=== PATIENT | male | born 1980 | race African-American/Black ===

== ENCOUNTER 2021-09-15 13:14 | Emergency (ER) | payer BC, SELFPAY ==
[2021-09-15] VITALS (10 sets, daily range): BP systolic 130–141; BP diastolic 73–88; PULSE 65–89; RESP 9–16; TEMP 36.8; O2SAT 100
--- NOTE | ~2021-09-15 | XR_ITS ---
EXAMINATION: XR chest 2V 09/15/2021 13:36 INDICATION: Shortness of breath PROCEDURE: 2 view chest COMPARISON: No prior studies for comparison. FINDINGS: The lungs are clear. The cardiomediastinal silhouette is within normal limits. There are no pleural effusions. There is no pneumothorax suspected. IMPRESSION: 1: NO ACUTE CARDIOPULMONARY DISEASE. Reviewed, dictated and finalized at location A.
--- NOTE | 2021-09-15 13:16 | ECG_ITS ---
Measurements Intervals [place] Rate: 67 P: 74 WI: 146 QRS: 63 QRSD: 108 T: 72 QT: 383 QTc: 405 Interpretive Statements SINUS RHYTHM POSSIBLE LEFT ATRIAL ENLARGEMENT [-0.1mV P WAVE IN V1/V2] INCOMPLETE RIGHT BUNDLE BRANCH BLOCK [90+ ms QRS DURATION, TERMINAL R IN V1/V2, 40+ ms S IN I/aVL/V4/V5/V6] POSSIBLE OLD SEPTAL MYOCARDIAL INFARCTION NO PREVIOUS ECG AVAILABLE FOR COMPARISON Electronically Signed On 09-15-2021 16:41:26 CDT by Monserrat Haque M.D.
[2021-09-15 14:07] LABS: Basophils Absolute Auto 0.1 K/mm3 (0.0-0.1); Basophils Percent Auto 0.5 % (0.2-1.2); Eosinophils Absolute Auto 0.1 K/mm3 (0-0.3); Eosinophils Percent Auto 0.6 % (0-4.4); Hematocrit 41.5 % (42.0-52.0); Hemoglobin 13.2 g/dL (14.0-18.0); Immature Granulocyte Absolute 0.04 K/mm3 (0.00-0.031); Immature Granulocyte Percent A 0.4 % (0-0.5); Lymphocytes Absolute Auto 2.48 K/mm3 (0.9-3.2); Lymphocytes Percent Auto 22.8 % (18.3-44.2); Mean Corpuscular HGB Conc 31.8 g/dl (32-36); Mean Corpuscular Hemoglobin 27.7 pg (26-34); Mean Platelet Volume 10.2 fl (7.4-10.4); Monocytes Absolute Auto 0.5 K/mm3 (0.1-0.6); Monocytes Percent Auto 4.8 % (2.6-8.5); Neutrophils Absolute Auto 7.7 K/mm3 (1.3-6.7); Neutrophils Percent Auto 70.9 % (45.5-73.1); Platelet Count Result 280 k/mm3 (150-375); Red Blood Count 4.77 M/mm3 (4.6-6.20); Red Cell Distribution Width 14.1 % (11.5-14.5); White Blood Count 10.9 K/mm3 (4.5-10.0)
[2021-09-15 14:21] LABS: Alanine Aminotransferase 16 U/L (6-50); Albumin Level 4.7 g/dL (3.5-5.1); Alkaline Phosphatase 73 U/L (38-126); Anion Gap 7 mmol/L (8-16); Aspartate Amino Transferase 31 U/L (17-59); Bilirubin,Total 0.5 mg/dL (0.2-1.3); Blood Urea Nitrogen 13 mg/dL (9-20); Calcium 9.2 mg/dL (8.4-10.2); Carbon Dioxide 26 mmol/L (22-30); Chloride 106 mmol/L (98-107); Estimated CRCL calculation 78 ml/min; Estimated Glomerular Filt Rate > 60; Glucose 103 mg/dL (65-110); Potassium 3.9 mmol/L (3.4-5.0); Sodium 139 mmol/L (137-145)
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
== END 2021-09-15 15:46 | disposition home or self-care (01) ==
PROVIDERS: Emergency Medicine; Emergency Provider Family Medicine
DX: R07.89 Other chest pain (principal); I45.10 Unspecified right bundle-branch block; R94.31 Abnormal electrocardiogram [ECG] [EKG]
CPT/HCPCS: 36415; 71046; 80053; 85025; 93005; 99284

== ENCOUNTER 2021-10-22 15:12 | Outpatient (CLI) | payer BC, SELFPAY ==
[2021-10-22 19:30] LABS: Cholesterol 164 mg/dL (0-200); HDL Direct 47 mg/dL; Triglycerides 118 mg/dL (<150)
[2021-10-22 19:41] LABS: LDL Cholesterol Direct 78 mg/dL
== END 2021-10-22 15:13 | disposition home or self-care (01) ==
LOC: ANHBWCLAB 15:13
PROVIDERS: PCP Family Medicine; Visit Provider Family Medicine
DX: Z00.00 Encounter for general adult medical examination without abnormal findings (principal)
CPT/HCPCS: 36415; 80061

== ENCOUNTER 2023-07-08 14:50 | Emergency (ER) | payer BC, SELFPAY ==
[2023-07-08 14:52] VITALS: BP 139/79; PULSE 114; RESP 20; TEMP 37; O2SAT 99
[2023-07-08 15:28] LABS: Basophils Absolute Auto 0.1 K/mm3 (0.0-0.1); Basophils Percent Auto 0.8 % (0.2-1.2); Eosinophils Absolute Auto 0.1 K/mm3 (0-0.3); Eosinophils Percent Auto 1.7 % (0-4.4); Hematocrit 40.1 % (42.0-52.0); Immature Granulocyte Absolute 0.02 K/mm3 (0.00-0.031); Immature Granulocyte Percent A 0.3 % (0-0.5); Lymphocytes Absolute Auto 2.68 K/mm3 (0.9-3.2); Lymphocytes Percent Auto 34.2 % (18.3-44.2); Mean Corpuscular HGB Conc 32.4 g/dl (32-36); Mean Corpuscular Hemoglobin 28.2 pg (26-34); Mean Platelet Volume 10.1 fl (7.4-10.4); Monocytes Absolute Auto 0.4 K/mm3 (0.1-0.6); Monocytes Percent Auto 5.6 % (2.6-8.5); Neutrophils Absolute Auto 4.5 K/mm3 (1.3-6.7); Neutrophils Percent Auto 57.4 % (45.5-73.1); Platelet Count Result 272 k/mm3 (150-375); Red Blood Count 4.61 M/mm3 (4.6-6.20); White Blood Count 7.8 K/mm3 (4.5-10.0)
[2023-07-08 15:39] LABS: INR 1.1; Prothrombin Time 14.1 Seconds (11.1-14.7)
[2023-07-08 15:40] LABS: Partial Thromboplastin Time 28.5 Seconds (22.3-36.8)
[2023-07-08 15:47] LABS: Alanine Aminotransferase 14 U/L (6-50); Albumin Level 4.5 g/dL (3.5-5.1); Alkaline Phosphatase 67 U/L (38-126); Anion Gap 5 mmol/L (4-12); Aspartate Amino Transferase 26 U/L (17-59); Bilirubin,Total 0.9 mg/dL (0.2-1.3); Blood Urea Nitrogen 14 mg/dL (9-20); Calcium 9.5 mg/dL (8.4-10.2); Carbon Dioxide 28 mmol/L (22-30); Chloride 108 mmol/L (98-107); Estimated CRCL calculation 72 ml/min; Estimated Glomerular Filt Rate > 60; Glucose 110 mg/dL (65-110); Potassium 3.6 mmol/L (3.4-5.0); Sodium 141 mmol/L (137-145)
--- NOTE | 2023-07-08 15:55 | ED.GENADULT ---
HPI - General Adult General Chief complaint: GI Bleed Stated complaint: blood in stool Time Seen by Provider: 07/08/23 15:11 History of Present Illness HPI narrative: 43-year-old male presenting to the emergency department for evaluation for blood passed per rectum during a bowel movement. Patient denies any prior history of GI bleed. Patient denies any associated abdominal pain. Patient states this morning he had a bowel movement and noticed some blood in the bowl and also some blood when he wiped. This episode happened approximately 10:00 a.m.. Patient states that it was formed stool. Patient has had no additional bowel movements today and had no episodes just passing blood. Patient is not on any blood thinners. Patient denies any prior history of constipation or diverticulitis. Patient states sometimes he does spend longer on the toilet but did not spent extensive time on the toilet today Related Data Allergies Allergy/AdvReac Type Severity Reaction Status Date / Time No Known Allergies Allergy Mild Verified 07/12/23 11:44 Review of Systems Review of Systems: All systems reviewed & are unremarkable except as noted in HPI and below PMFSH Family History Family History Grandparent Cancer Social History Social History Smoking status: Never smoker Alcohol intake: never Substance use: never Living arrangements: with roommate(s) Occupation/Education: occupation Additional occupation/education comments: [employer] Gender identity (if verbalized by the patient): Male Agree to blood products: No Exam Narrative: APPEARANCE: Well appearing, no pain, no distress, well-nourished. HEAD: normocephalic, atraumatic. EYES: PERRLA/EOMI, conjunctivae clear. NOSE: Normal no drainage EARS:TMS clear with good light reflex. THROAT: Pharynx clear, no exudate. NECK: Supple. No adenopathy, no masses. RESPIRATORY: Airway patent, respirations nonlabored. Clear to auscultation bilaterally, no rales, rhonchi, wheezing. CARDIOVASCULAR: Regular rate and rhythm without murmurs rubs or gallops. ABDOMINAL: Soft, nontender, nondistended, normal bowel sounds rectal exam: No external hemorrhoids or fissures, no bleeding MUSCULOSKELETAL: Moves all extremities. Strength/ROM intact, No edema, No calf tenderness. NEURO: Alert. Cranial nerves II through XII intact. Good gait. Good coordination SKIN: Warm, dry. Normal Color Course Vital Signs Vital signs: Vital Signs Temperature 98.6 F 07/08/23 14:52 Pulse Rate 114 H 07/08/23 14:52 Respiratory Rate 20 07/08/23 14:52 Blood Pressure 139/79 07/08/23 14:52 Pulse Oximetry 99 07/08/23 14:52 Temperature 98.6 F 07/08/23 14:52 Pulse Rate 114 H 07/08/23 14:52 Respiratory Rate 20 07/08/23 14:52 Blood Pressure 139/79 07/08/23 14:52 Pulse Oximetry 99 07/08/23 14:52 Medical Decision Making MDM Narrative Medical decision making narrative: 43-year-old male present to the emergency department for evaluation for blood when wiping. Patient is afebrile with no leukocytosis and hemoglobin of 13. Patient has a normal CMP. No active bleeding and patient has had no bleeding since 10:00 a.m.. Suspect internal hemorrhoids. Patient has no abdominal pain has no tenderness to palpation, low concern for diverticulitis. Patient was advised to spend less time sitting on the toilet and to increase his water and fiber intake. Differential Diagnosis Differential Diagnosis: constipation, hemorrhoids, internal hemorrhoids, external hemorrhoids, diverticulitis Vital Signs Vital Signs: Vital Signs Temperature 98.6 F 07/08/23 14:52 Pulse Rate 114 H 07/08/23 14:52 Respiratory Rate 20 07/08/23 14:52 Blood Pressure 139/79 07/08/23 14:52 Pulse Oximetry 99 07/08/23 14:52 Temperature 98.6 F 07/08/23 14:52 Pulse Rate 1
== END 2023-07-08 16:10 | disposition home or self-care (01) ==
PROVIDERS: Physician Assistant; Emergency Provider Emergency Medicine; PCP Family Medicine
DX: K62.5 Hemorrhage of anus and rectum (principal); K64.9 Unspecified hemorrhoids; Z79.51 Long term (current) use of inhaled steroids
CPT/HCPCS: 36415; 80053; 85025; 85610; 85730; 86850; 86900; 86901; 99283

== ENCOUNTER 2023-08-01 01:05 | Day surgery (SDC) | payer BC, SELFPAY ==
[2023-07-20 14:29] VITALS: BMI 21.0
[2023-08-01 13:41] VITALS: BP 121/79; PULSE 78; RESP 18; TEMP 36.6; O2SAT 100; BMI 19.1
[2023-08-01] MEDS: LACTATED RINGERS 1,000 ML 150 ML IV CONT (13:48)
--- NOTE | 2023-08-01 13:51 | WPDANESEPPF ---
Anes - Initial Pre Proc Eval Procedure: Operation Date: 08/01/23 15:00 Proposed Procedures p Colonoscopy - Franklin Hernadez MD Date/Time: 08/01/23 13:51 Surgeon: Franklin Hernadez MD Pre Op Diagnosis: Melena Patient Data Age: 43 Gender: M Height: 1.7 m Weight: 55.4 kg Last Vital Signs Temp 97.9 F 08/01/23 13:41 Pulse 78 08/01/23 13:41 Resp 18 08/01/23 13:41 BP 121/79 08/01/23 13:41 Pulse Ox 100 08/01/23 13:41 O2 Del Method Room Air 08/01/23 13:41 Allergies Allergy/AdvReac Type Severity Reaction Status Date / Time No Known Allergies Allergy Mild Verified 08/01/23 13:40 Home Medications Medication Instructions Recorded Confirmed Type albuterol sulfate 90 mcg/actuation 2 inh inhalation Q6H PRN shortness 09/15/21 08/01/23 Rx breath activated powder inhaler of breath #1 ea (ProAir RespiClick) fluticasone propionate 115 2 puff inhalation BID #12 grams 10/22/21 08/01/23 Rx mcg-salmeterol 21 mcg/actuation HFA inhaler (Advair HFA) Patient hx anesthesia problems: none Family hx anesthesia problems: none Results Review: All pre-operative results and documents have been reviewed as part of the pre-operative evaluation. [facility] Family History Family History Grandparent Cancer Social History Social History Smoking status: Never smoker Alcohol intake: never Substance use: never Substance use type: marijuana Last use: weekly Living arrangements: with family Occupation/Education: occupation Additional occupation/education comments: [employer] Gender identity (if verbalized by the patient): Male Spiritual care concerns: No Agree to blood products: No Anes - Eval Final PreProcedure Day of Procedure 08/01/23 13:51 Patient weight: normal Heart: regular rate and rhythm Lungs: clear to auscultation Airway: Mallampati scale and special considerations (Missing several lower teeth, none loose per pt. ) Neurological: alert and oriented Last oral intake: >/= 8 hours ASA classification: II Emergent: no Anesthetic plan: proceed Anesthesia type and monitoring: general GIVS and standard monitoring Results Review: All pre-operative results and documents have been reviewed as part of the pre-operative evaluation. Pt smokes marijuana occ. Now for colonoscopy for hx of blood in stool. Informed Consent: The patient's anesthetic plan and its attendant risks and benefits were discussed with the patient/family/POA. Questions were solicited and answers provided to the satisfaction of the patient/family/POA.
--- NOTE | 2023-08-01 14:56 | WPDHPUPDATE1 ---
History and Physical Update Update Date/Time: 08/01/23 14:56 History and Physical has been reviewed, including an updated exam of the patient. There are NO changes in the patient's condition. Risks, benefits, and alternatives have been discussed and questions answered. Patient agrees to proceed with procedure.
[2023-08-01 15:12] VITALS: BP 96/58; PULSE 80; RESP 17; O2SAT 100
[2023-08-01 15:22] VITALS: BP 114/75; PULSE 83; RESP 22; O2SAT 100
[2023-08-01 15:32] VITALS: BP 125/76; PULSE 70; RESP 23; O2SAT 100
--- NOTE | 2023-08-01 15:44 | SUR.PHASEII ---
Pt waiting for a ride
== END 2023-08-01 16:16 | disposition home or self-care (01) ==
PROVIDERS: PCP Family Medicine; Referring Provider Nurse Practitioner; Visit Provider Internal Medicine Gastroenterology
PROC: 0DJD8ZZ Inspection of Lower Intestinal Tract, Via Natural or Artificial Opening Endoscopic (ICD-10-PCS; CPT 45378; principal; 2023-08-01 15:00)
DX: K57.30 Diverticulosis of large intestine without perforation or abscess without bleeding (principal); K64.8 Other hemorrhoids; Z79.51 Long term (current) use of inhaled steroids
CPT/HCPCS: 45378; J2704; J7120

== ENCOUNTER 2023-09-19 15:47 | Emergency (ER) | payer BC, SELFPAY ==
--- NOTE | ~2023-09-19 | XR_ITS ---
EXAMINATION: XR chest 2V Exam Date/Time: 09/19/2023 19:09 CDT HISTORY: cp w/ inspiration Comparison: 09/15/2021. RESULT: Lines, tubes, and devices: None. Lungs and pleura: Clear. Cardiomediastinal silhouette: Stable. Other: No acute osseous or upper abdominal finding. IMPRESSION: No acute cardiopulmonary process. Reviewed, dictated and finalized at location K.
[2023-09-19 16:57] VITALS: BP 115/74; PULSE 73; RESP 15; TEMP 36.6; O2SAT 100
--- NOTE | 2023-09-19 20:36 | PC.NURSE ---
pt to intake desk I have been here since 3 and havent been seen yet. I cant keep staying here. This RN explained that we are very busy and apologized for the wait. Pt verbalized that he may leave, but went to waiting room.
[2023-09-19] MEDS: KETOROLAC 30 MG/ML VIAL (*BKC) IM (21:04)
[2023-09-19] MEDS: LIDOCAINE 5% PATCH 1 PATCH TRANSDERM (21:04)
[2023-09-19 21:12] VITALS: RESP 15; O2SAT 98
[2023-09-19 21:16] VITALS: BP 122/68; PULSE 76; RESP 15; O2SAT 100
--- NOTE | 2023-09-20 00:12 | ED.GENADULT ---
HPI - General Adult General Chief complaint: Unspecified Stated complaint: pain with inspiration Time Seen by Provider: 09/19/23 20:49 History of Present Illness HPI narrative: Patient with history of pneumothorax in the past presents here with pain to his mid sternum, he insists that there is a knot that hurts to touch. No fevers or chills. Pain is worse with certain movements and deep inhalation Related Data Allergies Allergy/AdvReac Type Severity Reaction Status Date / Time No Known Allergies Allergy Mild Verified 09/19/23 16:33 Review of Systems Review of Systems: All systems reviewed & are unremarkable except as noted in HPI and below PMFSH Family History Family History Grandparent Cancer Social History Social History Smoking status: Never smoker Alcohol intake: never Substance use: never Substance use type: marijuana Last use: weekly Living arrangements: with family Occupation/Education: occupation Additional occupation/education comments: [employer] 1 Gender identity (if verbalized by the patient): Male Spiritual care concerns: No Agree to blood products: No Exam Narrative: EXAMINATION OF ORGAN SYSTEMS/BODY AREAS: Constitutional: Vital signs per nursing GENERAL:[No acute distress, non-toxic appearing.] HEAD: Normal with no signs of head trauma. EYES: EOMI, conjunctiva normal ENT: Hearing grossly intact LUNGS: Nonlabored breathing. Clear to auscultation bilaterally HEART: [Regular rate and rhythm]. Tenderness to manubrium. ABD: [Soft], [tender to palpation] EXT: Normal range of motion SKIN: [No rashes or lesions.] NEURO: [Alert and oriented x 3. No gross focal sensory or strength deficits.] PSYCH: Normal affect Course Vital Signs Vital signs: Vital Signs Temperature 98 F 09/19/23 16:57 Pulse Rate 73 09/19/23 16:57 Respiratory Rate 15 09/19/23 16:57 Blood Pressure 115/74 09/19/23 16:57 Pulse Oximetry 100 09/19/23 16:57 Oxygen Delivery Room Air 09/19/23 16:57 Temperature 98 F 09/19/23 16:57 Pulse Rate 76 09/19/23 21:16 Respiratory Rate 15 09/19/23 21:16 Blood Pressure 122/68 09/19/23 21:16 Pulse Oximetry 100 09/19/23 21:16 Oxygen Delivery Room Air 09/19/23 16:57 Medical Decision Making MDM Narrative Medical decision making narrative: 43-year-old male presents here reporting tenderness and pain to his manubrium, denies any recent trauma. On exam he is well appearing, lungs are clear, he reports really sedation of pain when I touch is and insist that there is a knot that is not usually there, I do not feel any sort of mass, fluctuance, or anything else other than normal anatomy; I suspect possible inflammation or costochondritis, chest x-ray is clear here on my own independent interpretation, no pneumothorax, I have discussed this with the patient, he is given pain medications and on re-evaluation is feeling better, agreeable to outpatient management and return precautions. Vital Signs Vital Signs: Vital Signs Temperature 98 F 09/19/23 16:57 Pulse Rate 73 09/19/23 16:57 Respiratory Rate 15 09/19/23 16:57 Blood Pressure 115/74 09/19/23 16:57 Pulse Oximetry 100 09/19/23 16:57 Oxygen Delivery Room Air 09/19/23 16:57 Temperature 98 F 09/19/23 16:57 Pulse Rate 76 09/19/23 21:16 Respiratory Rate 15 09/19/23 21:16 Blood Pressure 122/68 09/19/23 21:16 Pulse Oximetry 100 09/19/23 21:16 Oxygen Delivery Room Air 09/19/23 16:57 Discharge Plan Discharge Clinical Impression: Chest pain Patient Disposition: Home, Self-Care Condition: Stable Instructions: Antibiotic Form, Chest Pain (ED) Additional Instructions: Please follow up with your doctor; take the pain medications as prescribed. You can always return to the ER for any further iss
== END 2023-09-19 21:17 | disposition home or self-care (01) ==
LOC: ANHED 21:00
PROVIDERS: Emergency Provider Emergency Medicine; PCP Family Medicine
DX: R07.2 Precordial pain (principal)
CPT/HCPCS: 71046; 96372; 99283; A9270; J1885

== ENCOUNTER 2025-01-09 10:08 | Outpatient (CLI) | payer BC, SELFPAY ==
--- NOTE | ~2025-01-09 | XR_ITS ---
EXAMINATION: XR sternum min 2V, 01/09/2025 10:25 [employer] HISTORY: R07.89 - Other chest pain COMPARISON: No comparisons available. Findings: No acute fracture or malalignment. No significant degenerative changes. Soft tissues unremarkable. Impression: No acute fracture or malalignment. Reviewed, dictated and finalized at location P. [employer] TE[employer]ER Impression: No acute fracture or malalignment.
--- OUTSIDE RECORDS SUMMARY | 2025-01-09 11:23 | XMS_ITS | Clinical Summary ---
Author Organization [facility] Address [address] [place] [address] Care Team Providers Care Hospice Liaison Name Role Phone Hardik Frazier MD Primary Care Provider [phone] Source Comments [facility],non-owned Affiliates and Associated Physician Practices is amultiple site organization consisting of ambulatory clinics and hospital sitesin [place], [place], [place] and [place]. This disclosure is being madepursuant to the Care Everywhere program and may not contain all information available regarding this patient. Last updated [facility] Allergies No known active allergies Medications * Be aware that medications may not be up to date on this document. Alwaysverify current medications with the patient. 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 Gender Identity Not on file Sexual Orientation Not on file Last Filed Vital Signs Vital Sign Reading Time Taken Comments Blood Pressure 122/78 09/30/2023 12:49 AM CDT Pulse 90 09/30/2023 12:49 AM CDT Temperature 36.6 C (97.8 F) 09/29/2023 12:27 PM CDT Respiratory Rate 18 09/30/2023 12:49 AM CDT Oxygen Saturation 100% 09/30/2023 12:49 AM CDT Inhaled Oxygen Concentration - - Weight 59 kg (130 lb) 09/29/2023 12:27 PM CDT Height 170.2 cm (5' 7) 09/29/2023 12:27 PM CDT Body Mass Index 20.36 09/29/2023 12:27 PM CDT Plan of Treatment Health Maintenance Due Date Last Done Comments COLOGUARD (AGES 45-75) - COL ON CA SCREENING 1979 COLON MONITORING 1979 COLONOSCOPY - COLON CA SCREENING 1979 CT COLONOGRAPHY - COLON CA SCREENING 1979 Colorectal Cancer Screening 1979 FIT - COLON CA SCREENING 1979 FLEX SIG - COLON CA SCREENING 1979 LIPID TESTING 1979 HIV SCREENING 05/14/1994 HEPATITIS C SCREENING 05/10/1997 DTAP/TDAP/TD VACCINES (1 - Tdap) 05/14/1998 HEPATITIS B VACCINE (1 of 3 - 19+ 3-dose series) 05/14/1998 HPV VACCINE (1 - 3-dose SCDM series) 05/14/2006 DEPRESSION SCREENING 02/08/2024 COVID-19 VACCINE (1 - 2024-2 6 season) 2024 INFLUENZA VACCINE (#1) 2024 ZOSTER VACCINE (1 of 2) 05/14/2029 HIB VACCINE Aged Out No longer eligi ble based on patient's age to complete this topic MENINGOCOCCAL (Group B) VACC INE SHARED DECISION-MAKING Aged Out No longer eligibl e based on patient's age to complete this topic MENINGOCOCCAL GROUPS A/C/Y/W VACCINE Aged Out No longer eligible b ased on patient's age to complete this topic PNEUMOCOCCAL VACCINE Aged Out No long er eligible based on patient's age to complete [place] [address] [employer] THIRD DEMOCRAT LIABILITY TP THIRD DEMOCRAT LIABILITY Care Teams Hospice Liaison Relationship Specialty Start Date End Date Hardik Frazier MD [address] [place] [address] PCP - General Family Medicine 09/29/23
--- OUTSIDE RECORDS SUMMARY | 2025-01-09 11:23 | XMS_ITS | Clinical Summary ---
Author Organization [facility] Address [address] [place] [address] Care Team Providers Care Photogeologist Name Role Phone Unavailable Primary Care Provider Unavailabl e Social History Tobacco Use Types Packs/Day Years Used Date Smoking Tobacco: Never Assessed Sex and Gender Information Value Date Recorded Sex Assigned at Not on file Legal Sex Male 10:25 AM PST Gender Identity Not on file Sexual Orientation Not on file Plan of Treatment Health Maintenance Due Date Last Done Comments Dental Oral Exam 1979 Dental Prophylaxis 1979 Dental X-Ray: Bitewings 1979 Dental X-Ray: Full Mouth 03/18/2026 03/17/2023 Dental X-Ray: Panoramic 03/18/2026 03/17/2023, 03/16 Procedures Procedure Name Priority Date/Time Associated Diagnosis Comments PANORAMIC RADIOGRAPHIC IMAGE Routine 03/16/2023 1:30 PM NUTRITION SERVICES MANAGER from Last 3 Months or Most Recently Relevant to Health Maintenance Insurance PPO Member Subscriber Plan / Payer (Ef fective 2023-Present) Name:Chato Lim Relation to Subscriber:Self Name:Chato Lim Payer ID:[id number] Group ID:Not on file Type:Not on file Address: [address] [address] [employer]
--- OUTSIDE RECORDS SUMMARY | 2025-01-09 11:23 | XMS_ITS | Encounter Summary ---
Author Organization [facility] Address [address] [place] [address] Care Team Providers Care Vegetable Grader Name Role Phone Unavailable Primary Care Provider Unavailabl e Prior Encounters Date Type Department Care Team Description 03/16/2023 1:30 PM CORPORATE EXECUTIVE CHEF Office Visit [facility] [address] [place] [phone] Kristofer Brumfield Plan of Treatment Not on file Procedures Procedure Name Priority Date/Time Associated Diagnosis Comments PANORAMIC RADIOGRAPHIC IMAGE Routine 03/16/2023 1:30 PM CORPORATE EXECUTIVE CHEF SINGLE X-RAY Routine 03/16/2023 1:30 PM CORPORATE EXECUTIVE CHEF LIMITED ORAL EVALUATION - PROBLEM FOCUSED Routine 03/16/2023 1:30 PM CORPORATE EXECUTIVE CHEF Visit Diagnoses Not on file Insurance PPO [employer]
--- OUTSIDE RECORDS SUMMARY | 2025-01-09 11:23 | XMS_ITS | Clinical Summary ---
Author Organization [facility] Address [address] [place] [id number] Care Team Providers Care Emergency Management System Director Name Role Phone None, Provider MD Primary Care Provider Unavaila ble Allergies No known active allergies Medications No known medications Encounters Date Type Department Care Team Description 12/23/2024 7:41 PM RN PLACEMENT - 12/24/2024 2:00 AM RN PLACEMENT Emergency [facility] [place] [address] Jose Briggs MD None, Provider, Jemal Keating MD Chest Pain Discharge Disposition: Home or Self Care (Routine Discharge) 12/23/2024 Travel from Last 3 Months Social History Tobacco Use Types Packs/Day Years Used Date Smoking Tobacco: Some Days Smokeless Tobacco: Never Alcohol Use Standard Drinks/Week Comments Not Currently 0 (1 standard drink = 0.6 oz pur e alcohol) Sex and Gender Information Value Date Recorded Sex Assigned at Male 12/23/2024 11:30 PM RN PLACEMENT Legal Sex Male 6:51 PM CDT Gender Identity Male 12/23/2024 11:30 PM RN PLACEMENT Sexual Orientation Not on file Last Filed Vital Signs Vital Sign Reading Time Taken Comments Blood Pressure 138/81 12/24/2024 1:50 AM RN PLACEMENT Pulse 63 12/23/2024 11:00 PM RN PLACEMENT Temperature 36.9 C (98.4 F) 12/23/2024 7:20 PM RN PLACEMENT Respiratory Rate 18 12/23/2024 11:00 PM RN PLACEMENT Oxygen Saturation 99% 12/24/2024 1:50 AM RN PLACEMENT Inhaled Oxygen Concentration - - Weight 59 kg (130 lb) 12/23/2024 7:20 PM RN PLACEMENT Height 170.2 cm (5' 7) 12/23/2024 7:20 PM RN PLACEMENT Body Mass Index 20.36 12/23/2024 7:20 PM RN PLACEMENT Plan of Treatment Health Maintenance Due Date Last Done Comments Colorectal Cancer Screening Colonoscopy (10 Years) 1980 Annual Physical 05/14/1982 DTaP, Tdap and Td Vaccines (6 - Tdap) 05/14/1990 11/17/1984, 01/19/1984, 06/30/1981, Additional history exists Hepatitis C 05/14/1997 Hepatitis B Vaccines (1 of 3 - 19+ 3-dose series) 05/14/1998 Pneumococcal Vaccine: Pediatrics (0 to 5 Years) and At-Risk Patients (6 to 49 Years) (1 of 2 - PCV) 05/14/1998 HPV Vaccines (1 - 3-dose SCDM series) 05/14/2006 COVID-19 Vaccine ( season) 2024 Influenza Adult (#1) 2024 Hepatitis A Vaccines Aged Out No long er eligible based on patient's age to complete this topic Meningococcal B Vaccine Aged Out No l onger eligible based on patient's age to complete this topic Meningococcal Vaccine Aged Out No osvaldo vlad eligible based on patient's age to complete this topic RSV Immunizations Under 20 Months Aged Out No longer eligible based on patient's age to complete this topic Procedures Procedure Name Priority Date/Time Associated Diagnosis Comments CTA CHEST PE PROTOCOL STAT 12/24/2024 12:46 AM RN PLACEMENT ECG 12-LEAD STAT 12/23/2024 9:38 PM RN PLACEMENT TROPONIN, QUANT STAT 12/23/2024 9:38 PM RN PLACEMENT XR CHEST PORTABLE STAT 12/23/2024 8: 02 PM RN PLACEMENT D-DIMER, QUANTITATIVE STAT 12/23/2024 7:35 PM RN PLACEMENT TROPONIN, QUANT STAT 12/23/2024 7:35 PM RN PLACEMENT COMPREHENSIVE METABOLIC PANEL STAT 12/23/2024 7:35 PM RN PLACEMENT HC CBC AUTO W/AUTO DIFF STAT 12/23/2024 7:35 PM RN PLACEMENT ECG 12-LEAD STAT 12/23/2024 7:28 PM RN PLACEMENT from Last 3 Months Results * CTA CHEST PE PROTOCOL (12/24/2024 12:46 AM RN PLACEMENT) Anatomical Region Laterality Modality Chest Computed Tomogra phy 12/24/2024 12:4 7 AM RN PLACEMENT Impressions 12/24/2024 12:50 AM RN PLACEMENT IMPRESSION: 1. No pulmonary embolism or acute cardiopulmonary abnormality. Referred By: Interpreted By: Christian Escalera MD, 12/24/2024 12:47 AM Narrative 12/24/2024 12:50 AM RN PLACEMENT [place] [address] REASON FOR EXAM: Chest pain. Abnormal EKG. DISCUSSION: Comparison: None. Technique: Volumetric multidetector CT images of the chest following the administration of IV contrast. MIP images in the coronal and sagittal planes were also reviewed. CT dose reduction technique was utilized. Findings: Technically adequate exam. No filling defect is seen in the central pulmonary vasculature to suggest pulmonary embolism. No coronary calcifications. The heart is normal in size. No pleural or pericardial effusion. No thoracic lymphadenopathy. The thyroid and esophagus are normal. The trachea and central airways are patent. The lungs are clear. Limited evaluation the upper abdomen is unremarkable. No acute osseous abnormality is seen. Procedure Note Christian Escalera, DO - 12/24/2024 [place] [address] REASON FOR EXAM: Chest pain. Abnormal EKG. DISCUSSION: Comparison: None. Technique: Volumetric multidetector CT images of the chest following theadministration of IV contrast. MIP images in the coronal and sagittalplanes were also reviewed. CT dose reduction technique was utilized. Findings: Technically adequate exam. No filling defect is seen in the centralpulmonary vasculature to suggest pulmonary embolism. No coronarycalcifications. The heart is normal in size. No pleural or pericardial effusion. Nothoracic lymphadenopathy. The thyroid and esophagus are normal. The trachea and central airways are patent. The lungs are clear. Limited evaluation the upper abdomen is unremarkable. No acute osseous abnormality is seen. IMPRESSION: 1. No pulmonary embolism or acute cardiopulmonary abnormality. Referred By: Interpreted By: Christian Escalera MD, 12/24/2024 12:47 AM Jemal Rascon MD CT Final Result * ECG 12 lead (12/23/2024 9:38 PM RN PLACEMENT) Only the most recent of2 resultswithin the time period is included. ECG QT 379 [facility] ECG QTC 404 [facility] 12/23/2024 9:38 PM RN PLACEMENT Narrative [facility] - 12/24/2024 11:21 AM RN PLACEMENT [facility] Test Date: 2024-12-23 Pat Name: SAIMA RIDDLE Department: 41 Room: [facility] Gender: Male Vp Publisher Development: [id number] : 1980 Requested By: KORINA DAVID Order Number: [id number] Reading MD: Charlie Ling Measurements Intervals Sutter Rate: 68 P: 64 SC: 160 QRS: 55 QRSD: 102 T: 71 QT: 379 QTc: 404 Interpretive Statements SINUS RHYTHM LEFT ATRIAL ENLARGEMENT [-0.15mV P-WAVE IN V1/V2] INCOMPLETE RIGHT BUNDLE BRANCH BLOCK [90+ ms QRS DURATION, TERMINAL R IN V1/V2, 40+ ms S IN I/aVL/V4/V5/V6] Compared to ECG 12/23/2024 19:28:09 T-wave abnormality no longer present PLACEMENT Procedure Note Charlie Ling MD - 12/24/[address] Test Date: 2024-12-23 Pat Name: SAIMA RIDDLE Department: 41 Room: [facility] Gender: Male Vp Publisher Development: [id number] : 1980 Requested By: KORINA DAVID Order Number: [id number] Reading MD: Charlie Ling Measurements Intervals Sutter Rate: 68 P: 64 SC: 160 QRS: 55 QRSD: 102 T: 71 QT: 379 QTc: 404 Interpretive Statements SINUS RHYTHM LEFT ATRIAL ENLARGEMENT [-0.15mV P-WAVE IN V1/V2] INCOMPLETE RIGHT BUNDLE BRANCH BLOCK [90+ ms QRS DURATION, TERMINAL RIN V1/V2, 40+ ms S IN I/aVL/V4/V5/V6] Compared to ECG 12/23/2024 19:28:09 T-wave abnormality no longer present PLACEMENT us [facility] ECG ORDERABLES Final Result [facility] * TROPONIN, QUANT (12/23/2024 9:38 PM RN PLACEMENT) Only the most recent of2 resultswithin the time period is included. TROPONIN I HIGH SENSITIVITY 3 <79 ng/L 12/23/2024 10:04 PM RN PLACEMENT [facility] Comment: HIGH DOSES OF BIOTIN, TROPONIN-SPECIFIC AUTOANTIBODIES, AND ANTIBODY THERAPY CONTAINING HAMA MAY INTERFERE WITH THIS TEST RESULT. CORRELATION TO CLINICAL HISTORY AND PRESENTATION RECOMMENDED. BLOOD VENOUS BLOOD SPECIMEN / Unknown 12/23/2024 9:38 PM RN PLACEMENT us [facility] Final Result [facility] [address] [place] [address], * XR CHEST PORTABLE (12/23/2024 8:02 PM RN PLACEMENT) Anatomical Region Laterality Modality Chest Radiographic Alba ging 12/23/2024 8:14 PM RN PLACEMENT Impressions 12/23/2024 8:17 PM RN PLACEMENT Impression: No acute findings. Referred By: Interpreted By: Santana Alegre MD, 12/23/2024 8:14 PM Narrative 12/23/2024 8:17 PM RN PLACEMENT [place] [address] Examination: Chest 1 view portable History: Chest pain DATE/TIME: 12/23/2024 7:35 PM Comparison: 01/19/2021 Technique: AP upright portable view of the chest was obtained. Findings: Heart size, mediastinal contours and pulmonary vasculature are within normal limits. No pulmonary consolidation, pleural effusion or pneumothorax. Minimal lateral curvature of the upper thoracic spine. No acute osseous abnormality. Procedure Note Santana Alegre MD - 12/23/2024 [place] [address] Examination: Chest 1 view portable History: Chest pain DATE/TIME: 12/23/2024 7:35 PM Comparison: 01/19/2021 Technique: AP upright portable view of the chest was obtained. Findings: Heart size, mediastinal contours and pulmonary vasculature arewithin normal limits. No pulmonary consolidation, pleural effusion orpneumothorax. Minimal lateral curvature of the upper thoracic spine. Noacute osseous abnormality. Impression: No acute findings. Referred By: Interpreted By: Santana Alegre MD, 12/23/2024 8:14 PM [facility] Final Result * D-DIMER, QUANTITATIVE (12/23/2024 7:35 PM RN PLACEMENT) Pathologist [facility] D-DIMER 343 0 - 500 ng{FEU}/mL 12/23/2024 8:09 PM [facility] Comment: D-Dimer values less than or equal to 500 ng/mL FEU have a negative predictive value of >95% for exclusion of deep vein thrombosis and pulmonary embolism. In patients over 50 (who tend to have higher normal baseline D-Dimer values), recent studies suggest age-adjusted D-Dimer cutoff values (calculated as: age [years] x 10 ng/mL) result in equivalent outcomes and no additional false negative findings. BLOOD VENOUS BLOOD SPECIMEN / Unknown 12/23/2024 7:35 PM RN PLACEMENT us [facility] Final Result [facility] [address] [place] [address], [place] [phone] * (ABNORMAL) COMPREHENSIVE METABOLIC PANEL (12/23/2024 7:35 PM RN PLACEMENT) [facility] GLUCOSE 163(H) 70 - 99 MG/DL 12/23/2024 8:09 PM [facility] BUN 13 7 - 18 MG/DL 12/23/2024 8:09 PM [facility] CREATININE S/P/B 1.12 0.7 - 1.3 MG/DL 12/23/2024 8:09 PM RN PLACEMENT [facility] SODIUM S/P/B 142 136 - 145 MMOL/L 12/23/2024 8:09 PM [facility] POTASSIUM S/P/B 3.4(L) 3.5 - 5.1 MMOL/L 12/23/2024 8:09 PM [facility] CHLORIDE S/P/B 106 97 - 115 MMOL/L 12/23/2024 8:09 PM [facility] CO2 27.1 21 - 32 MMOL/L 12/23/2024 8:09 PM [facility] CALCIUM S/P/B 8.9 8.5 - 10.1 MG/DL 12/23/2024 8:09 PM [facility] BILIRUBIN TOTAL S/P/B 0.6 0.2 - 1.2 MG/DL 12/23/2024 8:09 PM [facility] Comment: THIS ASSAY IS NOT RECOMMENDED FOR PATIENTS UNDERGOING TREATMENT WITH ELTROMBOPAG DUE TO THE POTENTIAL FOR FALSELY ELEVATED RESULTS. TOTAL PROTEIN S/P/B 7.9 6.4 - 8.2 G/DL 12/23/2024 8:09 PM [facility] ALBUMIN S/P/B 3.7 3.4 - 5.0 G/DL 12/23/2024 8:09 PM [facility] AST 20 15 - 37 U/L 12/23/2024 8:09 PM [facility] ALT 19 16 - 60 U/L 12/23/2024 8:09 PM [facility] ALKALINE PHOSPHATASE S/P/B 78 50 - 136 U/L 12/23/2024 8:09 PM [facility] ANION GAP 8.9 2 - 10 MMOL/L 12/23/2024 8:09 PM [facility] BUN CREATININE RATIO 11.6 6 - 26 12/23/2024 8:09 PM [facility] A/G RATIO 0.9(L) 1.0 - 2.0 RATIO 12/23/2024 8:09 PM [facility] GFR ESTIMATE 83(L) >90 ML/MIN/1.7 3 M2 12/23/2024 8:09 PM [facility] Comment: NOTE: eGFR is not calculated for patients <18 years of age or gender unknown. This is an estimated GFR calculation using the new CKD EPI creatinine equation without race and so does not require a correction factor for race. This estimated GFR should not be used for calculating drug doses. BLOOD VENOUS BLOOD SPECIMEN / Unknown 12/23/2024 7:35 PM RN PLACEMENT [facility] Final Result [facility] [address] [place] [address], [place] [phone] * (ABNORMAL) CBC W/DIFF AUTOMATED (12/23/2024 7:35 PM RN PLACEMENT) WBC 9.00 4.5 - 11.0 x10'3/uL 12/23/2024 7:49 PM RN PLACEMENT [facility] RBC 4.71 4.70 - 6.10 x10'6/uL 12/23/2024 7:49 PM RN PLACEMENT [facility] HGB 13.3(L) 14.0 - 18.0 G/DL 12/23/2024 7:49 PM [facility] HCT 39.8(L) 43.0 - 54.0 % 12/23/2024 7:49 PM RN PLACEMENT [facility] MCV 84.5 80.0 - 94.0 FL 12/23/2024 7:49 PM RN PLACEMENT [facility] MCH 28.2 27.0 - 31.0 PG 12/23/2024 7:49 PM RN PLACEMENT [facility] MCHC 33.4 32.0 - 36.0 G/DL 12/23/2024 7:49 PM RN PLACEMENT [facility] RDW 13.6 11.5 - 14.5 % 12/23/2024 7:49 PM RN PLACEMENT [facility] PLT 327 130 - 400 x10'3/uL 12/23/2024 7:49 PM RN PLACEMENT [facility] MPV 9.9 9.3 - 12.2 FL 12/23/2024 7:49 PM [facility] DIFFERENTIAL TYPE AUTOMATED DIFFERENTIAL 12/23/2024 7:49 PM RN PLACEMENT [facility] NEUTROPHILS % 64.7 % 12/23/2024 7:49 PM [facility] LYMPHOCYTES % 27.1 % 12/23/2024 7:49 PM RN PLACEMENT [facility] MONOCYTES % 4.3 % 12/23/2024 7:49 PM [facility] EOSINOPHILS 2.7 % 12/23/2024 7:49 PM [facility] BASOPHILS 0.9 % 12/23/2024 7:49 PM [facility] IMMATURE GRANS % 0.3 % 12/24/19 7:49 PM RN PLACEMENT [facility] ABS. NEUTROPHILS 5.82 1.80 - 7.70 x10'3/uL 12/23/2024 7:49 PM RN PLACEMENT [facility] ABS. LYMPHOCYTES 2.44 1.00 - 4.80 x10'3/uL 12/23/2024 7:49 PM RN PLACEMENT [facility] ABS. MONOCYTES 0.39 0.30 - 0.82 x10'3/uL 12/23/2024 7:49 PM RN PLACEMENT [facility] ABS. EOSINOPHILS 0.24 0.04 - 0.54 x10'3/uL 12/23/2024 7:49 PM [facility] ABS. BASOPHILS 0.08 0.01 - 0.08 x10'3/uL 12/23/2024 7:49 PM [facility] ABS. IMMATURE GRANULOCYTES 0.03 0.00 - 0.49 x10'3/uL 12/23/2024 7:49 PM RN PLACEMENT [facility] BLOOD VENOUS BLOOD SPECIMEN / Unknown 12/23/2024 7:35 PM RN PLACEMENT [facility] Final Result [facility] [address] [place] [address], from Last 3 Months Insurance [facility] Care Teams Emergency Management System Director Relationship Specialty Start Date End Date None, Provider, PCP - General 01/19/21
== END 2025-01-09 10:09 | disposition home or self-care (01) ==
PROVIDERS: PCP Family Medicine; Visit Provider Nurse Practitioner Family
DX: R07.89 Other chest pain (principal)
CPT/HCPCS: 71120